=== PATIENT | female | born 1965 | race Caucasian/White ===

== ENCOUNTER 2017-04-09 16:47 | Inpatient (IN) | payer BC, OTHER ==
[~2017-04-09 16:47] MED LIST: ISOVUE-370 76%-LOCM 1 ML ONE
[2017-04-09] MEDS ORDERED: Adacel (T-DAP) 0.5 ML VIAL ONE (17:00)
[2017-04-09 17:07] LABS: #Lymphocytes 2.8 thou/uL (1.20-3.40); #Monocytes 0.6 thou/uL (0.11-0.59); #Neutrophils 11.5 thou/uL (1.40-6.50); %Basophils 0.1 % (0.0-1.0); %Eosinophils 0.3 % (0.0-10.0); %Lymphocytes 18.5 % (21.0-51.0); Hematocrit 36.5 % (36.0-47.0); Mean Platelet Volume 7.4 fL (7.4-10.4); Red Blood Cell (RBC) Count 4.07 mill/uL (4.20-5.40); White Blood Cell (WBC) Count 14.9 thou/uL (4.8-10.8)
[2017-04-09 17:31] LABS: ALT (SGPT) 26 U/L (8-55); AST (SGOT) 35 U/L (5-34); Alkaline Phosphatase 62 U/L (40-150); Anion Gap 12 mmol/L (10-20); BUN (Urea Nitrogen) 25 mg/dL (9.8-20.1); Bilirubin, Total 0.3 mg/dL (0.2-1.2); Calc. Creatinine Clearance 0 mL/min (70-130); Calcium 8.7 mg/dL (7.8-10.44); Carbon Dioxide 25 mmol/L (22-29); Chloride 105 mmol/L (98-107); Estimated GFR-MDRD 62; Globulin 2.7 g/dL (2.4-3.5); Lipase 40 U/L (8-78); Protein, Total 6.4 g/dL (6.0-8.3)
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
--- NOTE | 2017-04-09 17:47 | RAD ---
TWO VIEWS RIGHT ANKLE: 04/09/17 HISTORY: Right ankle injury. FINDINGS: There is a small osseous density seen between the lateral malleolus and talus which could represent either an accessory center of ossification versus an avulsion injury of which the exact age is inde terminate. Several tiny osseous densities are seen inferior to the medial malleolus as well which ma y represent either remote injuries and/or accessory centers of ossification. There is no displaced f racture or dislocation seen. There is subcutaneous soft tissue swelling about the ankle. Calcaneal e nthesophyte is identified. Degenerative changes are seen about the tarsal bones. Area of sclerosis is seen in the region of the waist of talus, but this does not appear to represent a fracture. IMPRESSION: 1. Osseous densities adjacent to both the medial and lateral malleoli which may represent acces aaron centers of ossification and/or avulsion injuries of indeterminate age. 2. Subcutaneous soft tissue swelling about the ankle. POS: [facility]
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
[2017-04-09] MEDS ORDERED: Morphine Sulfate 2 MG/ML SYRINGE ONE ×2 (18:24→19:33)
[2017-04-09] MEDS ORDERED: Dextrose 50% Abboject 50 ML SYRINGE SLOW IVP PRN (18:33)
[2017-04-09] MEDS ORDERED: Dextrose 5% in Water 1,000 ML IV PRN (18:33)
[2017-04-09] MEDS ORDERED: Ondansetron HCl/PF 4 MG/2 ML Vial IVP PRN (18:33)
[2017-04-09] MEDS ORDERED: Ondansetron ODT 4 MG TAB PO PRN (18:33)
[2017-04-09] MEDS ORDERED: Cyclobenzaprine 10 MG TAB PO PRN (18:45)
[2017-04-09] MEDS ORDERED: Rib Fracture Protocol PO SCH (18:45)
[2017-04-09] MEDS ORDERED: Lidocaine 1% w/Epinephrine 1:100K 20 ML VIAL FS SCH (19:30)
[2017-04-09] MEDS: Gabapentin 300 MG CAP PO SCH (21:07)
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
[2017-04-09 23:06] VITALS: BMI 33.1
[2017-04-10] MEDS: Ibuprofen 800 MG TAB PO SCH ×2 (00:03→05:35)
[2017-04-10] MEDS: traMADol HCl 50 MG TAB PO SCH ×5 (00:03→23:52)
[2017-04-10] MEDS: Acetaminophen 500 MG TAB PO SCH ×5 (00:03→23:52)
[2017-04-10] MEDS: Famotidine/PF 20 mg/2ml Vial SLOW IVP SCH ×3 (00:04→20:29)
[2017-04-10] MEDS: Sodium Chloride 0.9% 1,000 ML IV SCH ×3 (00:06→16:30)
[2017-04-10 05:09] LABS: #Monocytes 0.6 thou/uL (0.11-0.59); #Neutrophils 5.4 thou/uL (1.40-6.50); %Basophils 0.2 % (0.0-1.0); %Eosinophils 0.1 % (0.0-10.0); %Lymphocytes 14.8 % (21.0-51.0); %Monocytes 8.4 % (0.0-10.0); Hematocrit 30.3 % (36.0-47.0); Mean Platelet Volume 7.3 fL (7.4-10.4); Red Blood Cell (RBC) Count 3.37 mill/uL (4.20-5.40)
[2017-04-10 05:23] LABS: Anion Gap 10 mmol/L (10-20); BUN (Urea Nitrogen) 20 mg/dL (9.8-20.1); Calc. Creatinine Clearance 115 mL/min (70-130); Calcium 8.4 mg/dL (7.8-10.44); Carbon Dioxide 25 mmol/L (22-29); Chloride 106 mmol/L (98-107); Estimated GFR-MDRD 68; Magnesium 1.9 mg/dL (1.6-2.6); Phosphorus 4.6 mg/dL (2.3-4.7)
[2017-04-10] MEDS: Levothyroxine Sodium 125 MCG TAB PO SCH (05:35)
--- NOTE | 2017-04-10 09:11 | RAD ---
SINGLE VIEW OF THE CHEST: Comparison: 05-11-14, CT chest 04-09-17 History: Rib fractures. FINDINGS: Single view of the chest shows a normal sized cardiomediastinal silhouette. There is no evidence of consolidation, mass, or pleural effusion. No pneumothorax is visualized. The bones are unremarkable. The fracture seen on the chest CT cannot be appreciated on this plain radiograph. IMPRESSION: No evidence of acute cardiopulmonary disease. POS: [facility]
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
[2017-04-10] MEDS: Gabapentin 300 MG CAP PO SCH ×3 (09:38→20:29)
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
[2017-04-10] MEDS: Ketorolac Tromethamine 30 MG/ML VIAL IVP SCH ×3 (13:32→23:52)
[2017-04-10] MEDS ORDERED: Dexamethasone 20 MG/5 ML VIAL ONE (18:00)
[2017-04-10] MEDS ORDERED: Lidocaine 2% PF 10 ML AMP (For Epidural Use) ONE (18:00)
[2017-04-10] MEDS ORDERED: Glycopyrrolate 0.2 MG/ML 5 ML SYRINGE ONE (18:00)
[2017-04-10] MEDS ORDERED: Ondansetron HCl/PF 4 MG/2 ML Vial ONE (18:00)
[2017-04-10] MEDS ORDERED: Propofol 200 MG/20 ML VIAL ONE (18:00)
[2017-04-10] MEDS ORDERED: Ketorolac Tromethamine 30 MG/ML VIAL ONE (18:00)
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
[2017-04-10] MEDS ORDERED: Fentanyl 100 MCG/2 ML VIAL ONE ×2 (18:38→19:25)
[2017-04-10] MEDS ORDERED: Promethazine HCl 25 MG/ML VIAL IM PRN (19:05)
[2017-04-10] MEDS ORDERED: Promethazine HCl 25 MG/ML VIAL SLOW IVP PRN (19:05)
[2017-04-10] MEDS ORDERED: Ondansetron HCl/PF 4 MG/2 ML Vial IVP PRN (19:05)
--- NOTE | 2017-04-10 19:19 | RAD ---
TWO INTRAOPERATIVE FLUOROSCOPIC IMAGES OF THE RIGHT WRIST 04/10/17 HISTORY: ORIF. COMPARISON: Views right wrist on 04/09/17. There is a volar plate and multiple screws transfixing the previously noted angulated and displaced fracture involving the distal right radius. No hardware complication is seen and there is improvemen t in alignment of the fracture fragments. There is overlying subcutaneous soft tissue swelling and s ubcutaneous emphysema. IMPRESSION: Postsurgical changes related to recent internal fixation of fracture distal right radius. POS: WM
[2017-04-11] MEDS: Sodium Chloride 0.9% 1,000 ML IV SCH (02:07)
[2017-04-11] MEDS: traMADol HCl 50 MG TAB PO SCH ×2 (05:41→12:07)
[2017-04-11] MEDS: Levothyroxine Sodium 125 MCG TAB PO SCH (05:42)
[2017-04-11] MEDS: Acetaminophen 500 MG TAB PO SCH ×2 (05:42→12:07)
[2017-04-11] MEDS: Ketorolac Tromethamine 30 MG/ML VIAL IVP SCH (05:43)
[2017-04-11 05:55] LABS: #Lymphocytes 0.7 thou/uL (1.20-3.40); #Monocytes 0.3 thou/uL (0.11-0.59); #Neutrophils 5.3 thou/uL (1.40-6.50); %Eosinophils 0.1 % (0.0-10.0); %Lymphocytes 11.2 % (21.0-51.0); %Monocytes 5.2 % (0.0-10.0); Hematocrit 26.6 % (36.0-47.0); Mean Platelet Volume 7.7 fL (7.4-10.4); Red Blood Cell (RBC) Count 2.93 mill/uL (4.20-5.40); White Blood Cell (WBC) Count 6.4 thou/uL (4.8-10.8)
[2017-04-11 06:38] LABS: Anion Gap 10 mmol/L (10-20); BUN (Urea Nitrogen) 11 mg/dL (9.8-20.1); Calc. Creatinine Clearance 126 mL/min (70-130); Calcium 8.4 mg/dL (7.8-10.44); Carbon Dioxide 26 mmol/L (22-29); Chloride 109 mmol/L (98-107); Estimated GFR-MDRD 76; Magnesium 1.9 mg/dL (1.6-2.6); Phosphorus 3.1 mg/dL (2.3-4.7)
[2017-04-11] MEDS: Gabapentin 300 MG CAP PO SCH ×2 (08:02→14:54)
[2017-04-11] MEDS: Famotidine/PF 20 mg/2ml Vial SLOW IVP SCH (08:02)
[2017-04-11] MEDS: Ibuprofen 800 MG TAB PO SCH ×2 (08:12→14:54)
[2017-04-11] MEDS ORDERED: Enoxaparin Sodium 40 MG/0.4 ML SYRINGE SC SCH (09:00)
[2017-04-11 12:19] VITALS: BP 107/70; TEMP 98.2
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
== END 2017-04-11 15:35 | disposition home or self-care (01) | DRG 511 ==
LOC: ERS 16:47 → SURG A 18:53
PROVIDERS: ADMIT Specialist; ATTEND Specialist
PROC: 0PSH04Z Reposition Right Radius with Internal Fixation Device, Open Approach (ICD-10-PCS; principal; 2017-04-10)
DX: S52.591A Other fractures of lower end of right radius, initial encounter for closed fracture (principal); S22.43XA Multiple fractures of ribs, bilateral, initial encounter for closed fracture; S27.329A Contusion of lung, unspecified, initial encounter; S91.011A Laceration without foreign body, right ankle, initial encounter; E03.9 Hypothyroidism, unspecified; V46.5XXA Car driver injured in collision with other nonmotor vehicle in traffic accident, initial encounter; Y92.410 Unspecified street and highway as the place of occurrence of the external cause; Z98.84 Bariatric surgery status
CPT/HCPCS: 29125; 36415; 70450; 71010; 71260; 72125; 74177; 76001; 80048; 80053; 83690; 83735; 84100; 85025; 90471; 90715; 94640; 96361; 96374; 96376; C1713; G0390; G8978-GP-CL; G8979-GP-CJ; G8987-GO-CI; G8988-GO-CI; G8989-GO-CI; J1100; J1650; J1885; J2001; J2270; J2405; J2704; J3010; J7620; S0028

== ENCOUNTER 2017-05-13 10:36 | Day surgery (SDC) | payer BC, OTHER ==
[2017-05-10 12:23] VITALS: BMI 31.6
[2017-05-13] MEDS ORDERED: CEFAZOLIN/Water 2 GM/20 ML SYRINGE ONE (12:25)
[2017-05-13] MEDS ORDERED: Bupivacaine 0.25% HCL 30 ML VIAL ONE (12:55)
[2017-05-13] MEDS ORDERED: Lidocaine 1% w/Epinephrine 1:200K 30 ML VIAL ONE (12:55)
[2017-05-13] MEDS ORDERED: Midazolam HCl 2 mg/2 ml Vial ONE (13:09)
[2017-05-13] MEDS ORDERED: Fentanyl 100 MCG/2 ML VIAL ONE ×4 (13:09→15:09)
[2017-05-13] MEDS ORDERED: Lidocaine 1% PF 5 ML VIAL ONE (13:14)
[2017-05-13] MEDS ORDERED: Ketorolac Tromethamine 30 MG/ML VIAL ONE (13:14)
[2017-05-13] MEDS ORDERED: Ondansetron HCl/PF 4 MG/2 ML Vial ONE (13:14)
[2017-05-13] MEDS ORDERED: Propofol 200 MG/20 ML VIAL ONE (13:14)
[2017-05-13] MEDS ORDERED: Dexamethasone 20 MG/5 ML VIAL ONE (13:14)
[2017-05-13] MEDS ORDERED: Morphine Sulfate 2 MG/ML SYRINGE SLOW IVP PRN (15:31)
[2017-05-13] MEDS ORDERED: Promethazine HCl 25 MG/ML VIAL IM/IV PRN (15:31)
[2017-05-13] MEDS ORDERED: Ondansetron HCl/PF 4 MG/2 ML Vial IVP PRN (15:31)
--- NOTE | 2017-05-13 16:15 | OP ---
DATE OF OPERATION: 05/13/2017 OPERATION: Right wrist hardware removal. PREOPERATIVE DIAGNOSIS: Right distal radius fracture with distal radioulnar joint pinning. The pat ient has had breakage of her distal radioulnar joint pin. POSTOPERATIVE DIAGNOSIS: Right distal radius fracture with distal radioulnar joint pinning. The pa tient has had breakage of her distal radioulnar joint pin. COMPLICATIONS: None. ESTIMATED BLOOD LOSS: Minimal. SURGEON: Lalo Ramos M.D. ANESTHESIA: General. INDICATIONS: Ms. Bermudez is indicated for pin removal in the operating room and given that her K-wir e pin has fractured. This was not amenable to removal in the clinic setting. Risks have been revie wed. The goal of surgery is to remove hardware prevent pain and allow mobilization of her wrist. S he has elected to proceed. DESCRIPTION OF PROCEDURE: Ms. Bermudez was identified in the preoperative holding area. Her correct extremity was marked. She was carried to the operating room. She was positioned supine. General a nesthesia was induced. A multidisciplinary timeout was performed. The right upper extremity was pr epped and draped in the usual sterile fashion. Next, we began the procedure with a small incision o ike the radius on the medial wrist. We dissected down to the subcutaneous tissues, protecting neuro vascular and tendinous structures. We exposed the tip of the pin using x-ray to identify the pin si de. Once we identified the tip of the K-wire, we removed this using a large needle sanitation truck driver. We took x-ray images confirming stability of the DRUJ. At this point, we irrigated and closed our wounds. The patient was taken to the recovery room in good condition.
--- NOTE | 2017-05-13 18:09 | RAD ---
RIGHT WRIST FLUOROSCOPIC IMAGING THREE VIEWS: Indication: Hardware removal. FINDINGS: Fluoroscopic imaging of the right wrist reveals metallic plate and screw fixation about the comminut ed distal radial fracture. Detail limited on provided intraoperative fluoroscopic views. IMPRESSION: Intraoperative imaging of the right wrist. POS: MELANIE
== END 2017-05-13 16:45 | disposition home or self-care (01) ==
LOC: SDC 10:36
PROVIDERS: ATTEND Orthopaedic Surgery
PROC: 2W5 Placement, Anatomical Regions, Removal (ICD-10-PCS; principal; 2017-05-13)
DX: T84.192A Other mechanical complication of internal fixation device of bone of right forearm, initial encounter (principal); E03.9 Hypothyroidism, unspecified; I10 Essential (primary) hypertension; K21.9 Gastro-esophageal reflux disease without esophagitis; J45.909 Unspecified asthma, uncomplicated; Z79.899 Other long term (current) drug therapy; Z98.84 Bariatric surgery status; Z90.710 Acquired absence of both cervix and uterus; Z98.890 Other specified postprocedural states; Z87.891 Personal history of nicotine dependence
CPT/HCPCS: 76001; 96374; J1100; J1885; J2001; J2250; J2405; J2704; J3010; S0020

== ENCOUNTER 2017-08-19 10:47 | Outpatient (CLI) | payer BC | END 2017-08-19 10:48 | disposition home or self-care (01) | LOC: BICMAMMO 10:47 | PROVIDERS: ATTEND Family Medicine | DX: R92.8 Other abnormal and inconclusive findings on diagnostic imaging of breast (principal); N64.89 Other specified disorders of breast | CPT/HCPCS: 77066; G0279 ==

== ENCOUNTER 2018-02-21 15:03 | Outpatient (CLI) | payer BC ==
--- NOTE | 2018-02-24 09:43 | MRI ---
MRI OF LEFT WRIST WITHOUT CONTRAST: HISTORY: S63.642A, rupture of lunar collateral ligaments. FINDINGS: The exam is severely limited due to motion artifact and non-true obliquity through the thumb. There is evidence of subluxation of the metacarpophalangeal joint of the thumb. The ulnar collateral ligam ent is not well seen, although there is a no gap to suggest a full thickness rupture. No Stener. les ion. There is degenerative change of the thumb carpometacarpal joint as well as the 2nd carpometacarpal estuardo int. Tendons: No significant tenosynovitis. Muscles: The muscle signal and bulk is normal. The thumb pulleys are intact. IMPRESSION: 1. Severely limited examination due to non-obliquity as well as extensive motion. No definite ulnar collateral ligament tear. No Stener lesion. 2. Moderate degenerative disease of the thumb carpometacarpal joint. POS: WM
== END 2018-02-21 15:04 | disposition home or self-care (01) ==
LOC: TBSIIMAG 15:03
PROVIDERS: ATTEND Orthopaedic Surgery Hand Surgery
DX: S63.642A Sprain of metacarpophalangeal joint of left thumb, initial encounter (principal); M18.11 Unilateral primary osteoarthritis of first carpometacarpal joint, right hand

== ENCOUNTER 2018-03-05 14:44 | Outpatient (CLI) | payer BC | END 2018-03-05 14:45 | disposition home or self-care (01) | LOC: BICMAMMO 14:44 | PROVIDERS: ATTEND Family Medicine | DX: R92.8 Other abnormal and inconclusive findings on diagnostic imaging of breast (principal) | CPT/HCPCS: G0279 ==

== ENCOUNTER 2020-01-11 04:40 | Outpatient (CLI) | payer BC, OTHER ==
[2020-01-11 11:18] LABS: #Eosinphils 0.1 thou/uL (0.0-0.7); #Monocytes 0.3 thou/uL (0.11-0.59); #Neutrophils 1.7 thou/uL (1.40-6.50); %Basophils 0.7 % (0.0-1.0); %Eosinophils 1.6 % (0.0-10.0); %Lymphocytes 48.5 % (21.0-51.0); %Neutrophils 41.2 % (42.0-75.0); Hemoglobin 12.4 g/dL (12.0-16.0); Mean Corpuscular HGB CONC 31.7 g/dL (32.0-36.0); Mean Corpuscular Hemoglobin 27.3 pg (27.0-31.0); Mean Corpuscular Volume 86.1 fL (78.0-98.0); Mean Platelet Volume 7.8 fL (7.4-10.4); Platelet Count 228 thou/uL (130-400); RBC Distribution Width 12.6 % (11.5-14.5); Red Blood Cell (RBC) Count 4.53 mill/uL (4.20-5.40); White Blood Cell (WBC) Count 4.2 thou/uL (4.8-10.8)
[2020-01-11 11:37] LABS: Anion Gap 11 mmol/L (10-20); BUN (Urea Nitrogen) 12 mg/dL (9.8-20.1); Calc. Creatinine Clearance 0 mL/min (70-130); Calcium 9.5 mg/dL (7.8-10.44); Carbon Dioxide 31 mmol/L (22-29); Chloride 101 mmol/L (98-107); Estimated GFR-MDRD 68; Glucose 102 mg/dL (70-105); Sodium 139 mmol/L (136-145)
[2020-01-12 14:01] LABS: SARS-CoV-2 MS2 Positive; SARS-CoV-2 N Gene Negative; SARS-CoV-2 S Gene Negative; SARS-CoV-2 orf1ab Negative
== END 2020-01-11 04:41 | disposition home or self-care (01) ==
LOC: LABBT 04:40
PROVIDERS: ATTEND Orthopaedic Surgery Hand Surgery
DX: Z01.818 Encounter for other preprocedural examination (principal); Z11.59 Encounter for screening for other viral diseases; M18.12 Unilateral primary osteoarthritis of first carpometacarpal joint, left hand
CPT/HCPCS: 80048; 85025; 87635; 93005; 93010; U0003

== ENCOUNTER 2020-01-15 05:35 | Day surgery (SDC) | payer BC ==
[2020-01-08 11:47] VITALS: BMI 29.0
[2020-01-15] MEDS ORDERED: Bupivacaine PF 0.5% 30 ML VIAL ONE (06:17)
[2020-01-15] MEDS ORDERED: Sodium Chloride 0.9% 10 ML ONE (06:17)
[2020-01-15] MEDS ORDERED: Bacitracin Zinc Ointment 30 gm TUBE ONE (06:17)
[2020-01-15] MEDS ORDERED: Betamet Acet/Betamet Na Ph 30 MG/5 ML VIAL ONE (06:17)
[2020-01-15] MEDS ORDERED: Fentanyl 100 MCG/2 ML VIAL ONE ×2 (06:32→06:39)
[2020-01-15] MEDS ORDERED: Midazolam HCl 2 mg/2 ml Vial ONE (06:39)
--- NOTE | 2020-01-15 10:10 | RAD ---
EXAM: 3 views of the left wrist HISTORY: Left thumb CMC joint arthroplasty COMPARISON: None FINDINGS/IMPRESSION: 3 limited intraoperative fluoroscopic views show the patient ongoing removal of the trapezium. K wires are seen extending from the thumb into the index finger metacarpals.
[2020-01-15] MEDS ORDERED: Ondansetron PF 4 MG/2 ML Vial ONE ×2 (10:18→10:20)
[2020-01-15] MEDS ORDERED: PHENYLEPHRINE-NS 100 MCG/ML 10 ML SYRINGE ONE (10:18)
[2020-01-15] MEDS ORDERED: PROPOFOL 200 MG/20 ML VIAL ONE ×2 (10:18→10:20)
[2020-01-15] MEDS ORDERED: Bupivacaine HCl 0.5%/Epinephrine 1:200,000/PF 30 ml Vial ONE ×2 (10:18→10:20)
[2020-01-15] MEDS ORDERED: EPHEDRINE 25 MG/5 ML SYRINGE ONE ×2 (10:18→10:20)
[2020-01-15] MEDS ORDERED: Lidocaine 1% PF 5 ML VIAL ONE (10:18)
[2020-01-15] MEDS ORDERED: Lidocaine 2% w/Epinephrine 1:200K 20 ML VIAL ONE (10:20)
[2020-01-15] MEDS ORDERED: Dexamethasone 20 MG/5 ML VIAL ONE (10:20)
[2020-01-15] MEDS ORDERED: Ketorolac Tromethamine 30 MG/ML VIAL ONE ×2 (10:20→10:51)
--- NOTE | 2020-01-16 07:26 | OP ---
DATE OF PROCEDURE: 01/15/2020 PREOPERATIVE DIAGNOSIS: Left thumb carpometacarpal osteoarthritis with large osteophytes. POSTOPERATIVE DIAGNOSIS: Left thumb carpometacarpal osteoarthritis with large osteophytes. FINDINGS: 80% thumb base and 6% trapezium complete loss of chondral surface with large osteophytes on both sides of the thumb carpometacarpal joint, left. PROCEDURES PERFORMED: 1. Complete trapeziectomy. 2. Flexor carpi radialis transfer to the thumb. 3. Ligament replacement with tendon interposition, carpometacarpal arthroplasty of the left thumb using flexor carpi radialis transfer. TOURNIQUET TIME: 100 minutes. ESTIMATED BLOOD LOSS: 20 mL. COMPLICATIONS: None. INDICATIONS: The patient failed conservative treatment to include injection, splinting, bracing, anti-inflammatory, lifestyle modification but still had high level of pain. Radiographs confirmed stage III osteoarthritis of left thumb CMC base. DESCRIPTION OF PROCEDURE: After successful block and LMA technique, the patient's limb was prepped and draped. The patient had the limb exsanguinated. Tourniquet inflated to 250 mmHg pressure. Confirmed with time-out the site, side, and procedure. We outlined the tendon harvest procedure along the FCR and we then made a curvilinear incision centered on the thumb CMC beginning distally at the dorsal and palmar skin junction and curving along the volar wrist flexion crease ending just short of the flexor carpi radialis tendon palpation mass. Carried through skin and subcutaneous tissue, we identified the radial nerve branches and protected them with blunt dissection including using the tenotomy scissors. Fat pad was protected. We then elevated the fascia off the distal and the proximal end of the base of the thumb metacarpal with the thenar muscles and then entered the space between the APL and the EPB to open the carpometacarpal joint capsule. Dissected the capsule completely off the trapezium at base of the thumb and tagged it with 2-0 undyed Vicryl. We then identified the radial nerve. We bluntly dissected it free and from and then we placed a threaded K-wire from the radial to ulna and not exiting into the space. We then dissected the trapezium completely, protecting the FCR, releasing it circumferentially and protecting the radial nerve radially. We lifted the trapezium out after identifying on radiographs, that there truly was appropriate bone. We placed a 3-0 Prolene deep in the capsule prison between the base of the thumb metacarpal and the index finger metacarpal. We resected all osteophytes off the thumb metacarpal. We then drilled a guidewire for a 3.5 cannulated drill bit in the midportion of the thumb metacarpal base and 12 mm distal to the joint space into the central portion of the articular subchondral bone edge on the opposite side of the metacarpal base. We protected the FCR and then drilled first a 2.7 hole until we got over the guidewire and then a 3.5 hole. The patient then had the curette used to expand it even further and make the edges smooth. We then entered our two previous harvest site incisions through skin and subcutaneous tissue, identified the FCR completely, it from the musculotendinous junction, appropriate muscle belly, brought back into the wrist. We cleaned it of all soft tissue other than the muscle itself, and then we were able to roll it longitudinally until we could pass it through the entire tendon through the 3.5 mm hole. We then reduced it in the frontal and sagittal plane in relationship to the index finger metacarpal, pinned it x2 into the index finger metacarpal and there was no damage to the tendon. The position of the bone was excellent. Under appropriate tension, we then tied using 4-0 Prolene twice to the abductor pollicis longus, once along the base of the metacarpal and then prepared the anchovy weave using the previously placed 3-0 Prolene with Zia needles tied deep in the capsule. We released the tourniquet. We obtained hemostasis and then closed the capsule with the 2-0 Vicryl. We had placed the K-wires appropriately and then cut them slightly below the skin. We closed the incisions with a running 3-0 Monocryl to include bringing the fascia over the thenar muscle back to the appropriate position of the capsule and the metacarpal. We then ran 4-0 Monocryl subcutaneous in all three incisions and closed the epidermis with interrupted 4-0 nylon mattress pattern. Bulky dressing was applied with a splint, thumb spica. The patient left the operating room without evidence of anesthetic or operative complication. Job ID: [id number]
== END 2020-01-15 12:30 | disposition home or self-care (01) ==
LOC: SDC 05:35
PROVIDERS: ATTEND Orthopaedic Surgery Hand Surgery
PROC: 0LX80ZZ Transfer Left Hand Tendon, Open Approach (ICD-10-PCS; principal; 2020-01-15)
DX: M19.032 Primary osteoarthritis, left wrist (principal); I10 Essential (primary) hypertension; E03.9 Hypothyroidism, unspecified; M67.40 Ganglion, unspecified site; Z79.899 Other long term (current) drug therapy
CPT/HCPCS: 76000; C1713; C1769; J0670; J0690; J0702; J1100; J1885; J2250; J2405; J2704; J3010; J3490; S0020